=== PATIENT | female | born 1940 | race Caucasian/White ===

== ENCOUNTER 2017-03-29 09:08 | Outpatient (CLI) | payer MEDICARE, BC ==
[2017-03-29 10:02] LABS: ALT (SGPT) 58 U/L (8-55); AST (SGOT) 60 U/L (5-34); Albumin 4.3 g/dL (3.4-4.8); Alkaline Phosphatase 61 U/L (40-150); Anion Gap 15 mmol/L (10-20); BUN (Urea Nitrogen) 16 mg/dL (9.8-20.1); Bilirubin, Total 0.9 mg/dL (0.2-1.2); Calc. Creatinine Clearance 0 mL/min (70-130); Calcium 9.9 mg/dL (7.8-10.44); Carbon Dioxide 27 mmol/L (23-31); Chloride 106 mmol/L (98-107); Estimated GFR-MDRD 52; Globulin 2.9 g/dL (2.4-3.5); Glucose 112 mg/dL (83-110); Potassium 4.6 mmol/L (3.5-5.1); Protein, Total 7.2 g/dL (6.0-8.3); Sodium 143 mmol/L (136-145)
== END 2017-03-29 09:09 | disposition home or self-care (01) ==
LOC: BURLAB 09:08
PROVIDERS: ATTEND Internal Medicine
DX: I10 Essential (primary) hypertension (principal)
CPT/HCPCS: 36415; 80053

== ENCOUNTER 2021-11-26 10:47 | Outpatient (CLI) | payer MEDICARE, BC | END 2021-11-26 10:48 | disposition home or self-care (01) | LOC: BURCT 10:47 | PROVIDERS: ATTEND Anesthesiology Pain Medicine | DX: M48.062 Spinal stenosis, lumbar region with neurogenic claudication (principal); M51.36 Other intervertebral disc degeneration, lumbar region | CPT/HCPCS: 72131 ==

== ENCOUNTER 2023-12-08 04:59 | Emergency (ER) | payer MEDICARE ==
[2023-12-08] MEDS ORDERED: Acetaminophen 325 MG TAB ONE (05:23)
[2023-12-08] MEDS ORDERED: Morphine 4 MG/ML VIAL ONE (05:23)
== END 2023-12-08 10:25 | disposition home or self-care (01) ==
LOC: BURERS 04:59
DX: S32.020A Wedge compression fracture of second lumbar vertebra, initial encounter for closed fracture (principal); I10 Essential (primary) hypertension; X58.XXXA Exposure to other specified factors, initial encounter
CPT/HCPCS: 72131; 96374; J2270

== ENCOUNTER 2025-01-16 13:58 | Emergency (ER) | payer MEDICARE | END 2025-01-16 16:09 | disposition home or self-care (01) | LOC: BURERS 13:58 | DX: M25.532 Pain in left wrist (principal); I48.91 Unspecified atrial fibrillation; I10 Essential (primary) hypertension; E78.00 Pure hypercholesterolemia, unspecified; Z79.899 Other long term (current) drug therapy | CPT/HCPCS: 99283 ==